=== PATIENT | female | born 1975 | race Caucasian/White ===

== ENCOUNTER → 2017-06-29 | Outpatient (CLI) | payer BC ==
[~2017-06-29] MED LIST: BIAXIN500 MG PO; CIPRO500 MG PO; CIPROFLOXACIN500 MG PO; CLARITIN10 MG PO; DIFLUCAN150 MG PO; DOXYCYCLINE100 M2 PO; LEVOTHYROXIN0.025 MG PO; MACROBID100 M1 PO; PRILOSEC40 MG PO
== END | disposition home or self-care (01) ==
LOC: US 15:14
DX: M79.605 Pain in left leg (principal); R60.0 Localized edema

== ENCOUNTER → 2017-07-27 | Outpatient (CLI) | payer BC | END | disposition home or self-care (01) | LOC: US 12:22 | DX: I65.23 Occlusion and stenosis of bilateral carotid arteries (principal); R42 Dizziness and giddiness ==

== ENCOUNTER → 2017-08-03 | Outpatient (CLI) | payer BC | END | disposition home or self-care (01) | LOC: US 14:31 | DX: R10.2 Pelvic and perineal pain (principal); R19.8 Other specified symptoms and signs involving the digestive system and abdomen ==

== ENCOUNTER → 2017-08-07 | Outpatient (CLI) | payer BC | END | disposition home or self-care (01) | LOC: CP 09:48 | DX: R42 Dizziness and giddiness (principal) ==

== ENCOUNTER → 2017-09-17 | Day surgery (SDC) | payer BC ==
[~2017-09-17] VITALS: Ht 162.5 cm; Wt 81.6 kg
[~2017-09-17] MED LIST changes: +ASPIRIN81 M1 PO; +CLONAZEPAM0.5 M1 PO; +CRESTOR5 MG PO; -LEVOTHYROXIN0.025 MG PO; +LEVOXYL88 MCG PO; +METFORMIN ER500 MG PO; +OXYBUTYNIN5 MG PO; +TOPIRAMATE25 M2 PO; +ULTRAM50 MG PO
[2017-09-17 08:43] VITALS: BP 118/79
[2017-09-17 12:30] VITALS: BP 123/64
[2017-09-17 12:45] VITALS: BP 133/64
[2017-09-17 13:00] VITALS: BP 140/67
== END ==
LOC: SDC 09-13 08:45
DX: L72.0 Epidermal cyst (principal); E11.9 Type 2 diabetes mellitus without complications; K21.9 Gastro-esophageal reflux disease without esophagitis; Z79.899 Other long term (current) drug therapy; Z98.890 Other specified postprocedural states; E66.9 Obesity, unspecified; E07.89 Other specified disorders of thyroid

== ENCOUNTER → 2018-01-29 | Outpatient (CLI) | payer BC ==
[2018-01-29 10:20] LABS: CHOLESTEROL 139 mg/dL (<200); CREATININE 0.72 mg/dL (0.55-1.02); POTASSIUM 3.7 mmol/L (3.5-5.1); SGOT/AST 11 IU/L (3-35); SGPT/ALT 14 U/L (12-78); TRIGLYCERIDES 71 mg/dl (<150); VLDL CHOLESTEROL 14 mg/dL (6-40)
[2018-01-29 10:30] LABS: HDL CHOLESTEROL 59 mg/dl (40-60); LDL CHOLESTEROL 66 mg/dL (9-159)
[2018-01-30 11:04] LABS: CREATININE,URINE 186.1 mg/dL (Not Estab.); MICRO ALBUMIN/CRE RATIO 5.7 (0.0-30.0)
== END | disposition home or self-care (01) ==
LOC: LAB 08:59
PROVIDERS: Internal Medicine Endocrinology, Diabetes & Metabolism
DX: E10.9 Type 1 diabetes mellitus without complications (principal)

== ENCOUNTER → 2018-02-13 | Outpatient (CLI) | payer BC ==
[2018-02-13 11:26] LABS: BASO # 0.1 10*3/uL (0.0-0.1); BASO % 0.9 % (0.0-1.0); EOS # 0.4 10*3/uL (0.0-0.4); HEMATOCRIT 39.5 % (37.0-47.0); HEMOGLOBIN 12.8 g/dl (12.0-16.0); LYMPH # 2.3 10*3/uL (1.3-4.4); LYMPH % 25.7 % (27.0-41.0); MEAN CORPUSCULAR HGB 26.9 pg (27.0-31.0); MEAN CORPUSCULAR HGB CONC 32.4 g/dl (33.0-37.0); MEAN PLATELET VOLUME 11.6 fl (9.6-12.3); MONO # 0.6 10*3/uL (0.1-1.0); MONO % 6.2 % (3.0-9.0); NEUT # 5.5 10*3/uL (2.3-7.9); NEUT % 62.9 % (47.0-73.0); PLATELET COUNT AUTOMATED 280 10*3/uL (130-400); RED BLOOD COUNT 4.76 10*6/uL (4.10-5.10); RED CELL DISTRI WIDTH 12.6 % (0-14.5); WHITE BLOOD COUNT 8.8 10*3/uL (4.8-10.8)
== END | disposition home or self-care (01) ==
LOC: LAB 10:57
PROVIDERS: Nurse Practitioner Family
DX: N93.9 Abnormal uterine and vaginal bleeding, unspecified (principal); R53.83 Other fatigue

== ENCOUNTER → 2018-02-27 | Outpatient (CLI) | payer BC | END | disposition home or self-care (01) | LOC: US 12:30 | DX: N93.9 Abnormal uterine and vaginal bleeding, unspecified (principal) ==

== ENCOUNTER → 2019-03-05 | Outpatient (CLI) | payer BC | END | disposition home or self-care (01) | LOC: MAMMO 10:40 | DX: Z12.31 Encounter for screening mammogram for malignant neoplasm of breast (principal) ==

== ENCOUNTER → 2019-06-05 | Outpatient (CLI) | payer BC ==
[2019-06-05 09:00] LABS: CHOLESTEROL 167 mg/dL (<200); CREATININE 0.69 mg/dL (0.55-1.02); POTASSIUM 4.1 mmol/L (3.5-5.1); SGOT/AST 9 IU/L (3-35); SGPT/ALT 19 U/L (12-78); TRIGLYCERIDES 45 mg/dl (<150); VLDL CHOLESTEROL 9 mg/dL (6-40)
[2019-06-05 09:10] LABS: FREE T4 1.19 ng/dl (0.76-1.46); HDL CHOLESTEROL 67 mg/dl (40-60); LDL CHOLESTEROL 91 mg/dL (9-159)
[2019-06-06 11:09] LABS: MICRO ALBUMIN/CRE RATIO 4.6 (0.0-30.0)
== END | disposition home or self-care (01) ==
LOC: LAB 08:12
PROVIDERS: Internal Medicine Endocrinology, Diabetes & Metabolism
DX: E10.9 Type 1 diabetes mellitus without complications (principal)

== ENCOUNTER → 2019-09-16 | Outpatient (CLI) | payer BC | END | disposition home or self-care (01) | LOC: RESCLI 01:37 | DX: E10.9 Type 1 diabetes mellitus without complications (principal); J32.9 Chronic sinusitis, unspecified; E03.9 Hypothyroidism, unspecified; F41.9 Anxiety disorder, unspecified; R03.0 Elevated blood-pressure reading, without diagnosis of hypertension; Z79.4 Long term (current) use of insulin; Z79.899 Other long term (current) drug therapy; Z90.89 Acquired absence of other organs ==

== ENCOUNTER → 2019-11-26 | Outpatient (CLI) | payer BC | END | disposition home or self-care (01) | LOC: LAB 13:25 | DX: N28.9 Disorder of kidney and ureter, unspecified (principal); R31.9 Hematuria, unspecified; Z87.442 Personal history of urinary calculi ==

== ENCOUNTER → 2019-11-28 | Outpatient (CLI) | payer BC | END | disposition home or self-care (01) | LOC: CT 17:00 | DX: N23 Unspecified renal colic (principal); R31.9 Hematuria, unspecified; Z87.442 Personal history of urinary calculi ==

== ENCOUNTER → 2020-04-21 | Outpatient (CLI) | payer BC | END | disposition home or self-care (01) | LOC: RESCLI 03:22 | DX: Z30.011 Encounter for initial prescription of contraceptive pills (principal); Z51.81 Encounter for therapeutic drug level monitoring; E03.9 Hypothyroidism, unspecified; I10 Essential (primary) hypertension; E10.9 Type 1 diabetes mellitus without complications; E78.5 Hyperlipidemia, unspecified ==

== ENCOUNTER → 2020-06-03 | Outpatient (CLI) | payer BC | END | disposition home or self-care (01) | LOC: RAD 13:51 | PROVIDERS: ATTEND Nurse Practitioner Family | DX: M77.10 Lateral epicondylitis, unspecified elbow (principal); M77.02 Medial epicondylitis, left elbow ==

== ENCOUNTER → 2020-08-04 | Outpatient (CLI) | payer BC | END | disposition home or self-care (01) | LOC: RESCLI 05:13 | PROVIDERS: ATTEND Internal Medicine Nephrology | DX: Z23 Encounter for immunization (principal); Z30.011 Encounter for initial prescription of contraceptive pills; E03.9 Hypothyroidism, unspecified; E78.2 Mixed hyperlipidemia; I10 Essential (primary) hypertension; E10.9 Type 1 diabetes mellitus without complications ==

== ENCOUNTER → 2020-09-03 | Outpatient (CLI) | payer BC | END | disposition home or self-care (01) | LOC: RAD 12:58 | PROVIDERS: ATTEND Orthopaedic Surgery | DX: M79.642 Pain in left hand (principal) ==

== ENCOUNTER → 2020-11-16 | Outpatient (CLI) | payer BC ==
[2020-11-16 16:00] LABS: BILIRUBIN Negative (Negative); BLOOD 3+ (Negative); CLARITY Cloudy (Clear); COLOR Yellow (Yellow); GLUCOSE Negative (Negative); KETONE Trace (Negative); LEUKO ESTERASE 2+ (Negative); NITRITE Negative (Negative); PH 5.5 (4.5-8.0); SPECIFIC GRAVITY 1.025 (1.001-1.030)
[2020-11-16 16:00] LABS: BASO # 0.1 10*3/uL (0.0-0.1); BASO % 0.8 % (0.0-1.0); EOS # 0.2 10*3/uL (0.0-0.4); EOS % 1.8 % (1.0-4.0); HEMATOCRIT 43.4 % (37.0-47.0); LYMPH # 2.4 10*3/uL (1.3-4.4); LYMPH % 23.3 % (27.0-41.0); MEAN CELL VOLUME 87.7 fl (81.0-99.0); MEAN CORPUSCULAR HGB 27.7 pg (27.0-31.0); MEAN CORPUSCULAR HGB CONC 31.6 g/dl (33.0-37.0); MONO # 0.8 10*3/uL (0.1-1.0); MONO % 7.9 % (3.0-9.0); NEUT # 6.8 10*3/uL (2.3-7.9); NEUT % 65.7 % (47.0-73.0); PLATELET COUNT AUTOMATED 278 10*3/uL (130-400); RED BLOOD COUNT 4.95 10*6/uL (4.10-5.10); RED CELL DISTRI WIDTH 12.8 % (0-14.5); WHITE BLOOD COUNT 10.4 10*3/uL (4.8-10.8)
[2020-11-16 16:07] LABS: RBC TNTC rbc/hpf (0-2); WBC TNTC wbc/hpf (0-5)
[2020-11-16 16:08] LABS: BACTERIA 1+; CALCIUM OXALATE CRYSTALS 1+
[2020-11-16 16:12] LABS: BUN 9 mg/dl (7-24); CHLORIDE 109 mmol/L (98-107); CREATININE 0.67 mg/dL (0.55-1.02); POTASSIUM 3.7 mmol/L (3.5-5.1); SODIUM 141 mmol/L (136-145)
== END | disposition home or self-care (01) ==
LOC: RESCLI 01:19 → LAB 01:19 → RESCLI 18:47
PROVIDERS: Internal Medicine; ATTEND Internal Medicine
DX: N39.0 Urinary tract infection, site not specified (principal); E03.9 Hypothyroidism, unspecified; E10.9 Type 1 diabetes mellitus without complications; I10 Essential (primary) hypertension; E78.2 Mixed hyperlipidemia; Z30.011 Encounter for initial prescription of contraceptive pills; Z79.899 Other long term (current) drug therapy; Z98.890 Other specified postprocedural states; Z79.82 Long term (current) use of aspirin

== ENCOUNTER → 2020-12-07 | Outpatient (CLI) | payer BC | END | disposition home or self-care (01) | LOC: RAD 19:32 | PROVIDERS: ATTEND Nurse Practitioner Family | DX: M25.571 Pain in right ankle and joints of right foot (principal); R60.0 Localized edema; Z82.69 Family history of other diseases of the musculoskeletal system and connective tissue ==

== ENCOUNTER → 2021-10-03 | Outpatient (CLI) | payer BC | END | disposition home or self-care (01) | LOC: RAD 09:34 | PROVIDERS: ATTEND Nurse Practitioner Family | DX: R05.9 Cough, unspecified (principal); R06.02 Shortness of breath ==

== ENCOUNTER → 2022-06-08 | Outpatient (CLI) | payer BC ==
[2022-06-08 10:33] LABS: BASO # 0.1 10*3/uL (0.0-0.1); EOS # 0.2 10*3/uL (0.0-0.4); EOS % 2.6 % (1.0-4.0); HEMATOCRIT 41.6 % (37.0-47.0); LYMPH # 2.1 10*3/uL (1.3-4.4); LYMPH % 22.4 % (27.0-41.0); MEAN CELL VOLUME 87.4 fl (81.0-99.0); MEAN CORPUSCULAR HGB 28.4 pg (27.0-31.0); MEAN CORPUSCULAR HGB CONC 32.5 g/dl (33.0-37.0); MEAN PLATELET VOLUME 11.4 fl (9.6-12.3); MONO # 0.7 10*3/uL (0.1-1.0); MONO % 7.3 % (3.0-9.0); NEUT # 6.1 10*3/uL (2.3-7.9); NEUT % 66.3 % (47.0-73.0); PLATELET COUNT AUTOMATED 262 10*3/uL (130-400); RED BLOOD COUNT 4.76 10*6/uL (4.10-5.10); RED CELL DISTRI WIDTH 12.5 % (0-14.5); WHITE BLOOD COUNT 9.2 10*3/uL (4.8-10.8)
== END | disposition home or self-care (01) ==
LOC: LAB 10:19
PROVIDERS: ATTEND Nurse Practitioner Women's Health
DX: N93.9 Abnormal uterine and vaginal bleeding, unspecified (principal); R53.83 Other fatigue

== ENCOUNTER → 2022-07-27 | Outpatient (CLI) | payer BC | END | disposition home or self-care (01) | LOC: RESCLI 13:52 | PROVIDERS: ATTEND Internal Medicine | DX: E10.9 Type 1 diabetes mellitus without complications (principal); I10 Essential (primary) hypertension; E03.9 Hypothyroidism, unspecified; E78.2 Mixed hyperlipidemia; E55.9 Vitamin D deficiency, unspecified; N93.9 Abnormal uterine and vaginal bleeding, unspecified; Z78.9 Other specified health status; Z72.89 Other problems related to lifestyle; Z82.49 Family history of ischemic heart disease and other diseases of the circulatory system; Z98.890 Other specified postprocedural states; Z79.82 Long term (current) use of aspirin; Z79.899 Other long term (current) drug therapy ==

== ENCOUNTER → 2023-04-26 | Outpatient (CLI) | payer BC ==
[2023-04-26 13:19] LABS: BASO # 0.1 10*3/uL (0.0-0.1); EOS # 0.2 10*3/uL (0.0-0.4); HEMATOCRIT 38.2 % (37.0-47.0); LYMPH # 1.5 10*3/uL (1.3-4.4); LYMPH % 20.7 % (27.0-41.0); MEAN CELL VOLUME 86.8 fl (81.0-99.0); MEAN CORPUSCULAR HGB 28.9 pg (27.0-31.0); MEAN CORPUSCULAR HGB CONC 33.2 g/dl (33.0-37.0); MEAN PLATELET VOLUME 11.4 fl (9.6-12.3); MONO # 0.6 10*3/uL (0.1-1.0); MONO % 7.9 % (3.0-9.0); NEUT # 4.9 10*3/uL (2.3-7.9); NEUT % 66.8 % (47.0-73.0); PLATELET COUNT AUTOMATED 250 10*3/uL (130-400); RED CELL DISTRI WIDTH 12.6 % (0-14.5); WHITE BLOOD COUNT 7.3 10*3/uL (4.8-10.8)
[2023-04-26 13:57] LABS: ALKALINE PHOSPHATASE 40 U/L (46-116); BUN 8 mg/dl (9-23); CHLORIDE 108 mmol/L (98-107); CHOLESTEROL 140 mg/dL (<200); LDL CHOLESTEROL 58 mg/dL (9-159); POTASSIUM 3.7 mmol/L (3.4-5.1); SGPT/ALT 10 U/L (10-49); TRIGLYCERIDES 43 mg/dl (<150)
== END | disposition home or self-care (01) ==
LOC: LAB 12:57
PROVIDERS: ATTEND Nurse Practitioner Family
DX: E10.9 Type 1 diabetes mellitus without complications (principal); E03.9 Hypothyroidism, unspecified; I10 Essential (primary) hypertension

== ENCOUNTER → 2023-08-29 | Outpatient (CLI) | payer BC | END | disposition home or self-care (01) | LOC: RESCLI 14:21 | PROVIDERS: ATTEND Internal Medicine | DX: E03.9 Hypothyroidism, unspecified (principal); E10.9 Type 1 diabetes mellitus without complications; I10 Essential (primary) hypertension; E78.2 Mixed hyperlipidemia; E55.9 Vitamin D deficiency, unspecified; F41.9 Anxiety disorder, unspecified; Z79.82 Long term (current) use of aspirin; Z79.899 Other long term (current) drug therapy; Z86.16 Personal history of COVID-19; Z82.49 Family history of ischemic heart disease and other diseases of the circulatory system ==

== ENCOUNTER → 2023-09-18 | Outpatient (CLI) | payer BC ==
[2023-09-18 10:17] LABS: BASO # 0.1 10*3/uL (0.0-0.1); BASO % 1.2 % (0.0-1.0); EOS # 0.1 10*3/uL (0.0-0.4); EOS % 2.4 % (1.0-4.0); HEMATOCRIT 45.9 % (37.0-47.0); LYMPH # 1.2 10*3/uL (1.3-4.4); MEAN CELL VOLUME 88.8 fl (81.0-99.0); MEAN CORPUSCULAR HGB 26.9 pg (27.0-31.0); MEAN CORPUSCULAR HGB CONC 30.3 g/dl (33.0-37.0); MEAN PLATELET VOLUME 11.3 fl (9.6-12.3); MONO # 0.9 10*3/uL (0.1-1.0); MONO % 14.5 % (3.0-9.0); NEUT # 3.6 10*3/uL (2.3-7.9); NEUT % 61.6 % (47.0-73.0); PLATELET COUNT AUTOMATED 208 10*3/uL (130-400); RED BLOOD COUNT 5.17 10*6/uL (4.10-5.10); RED CELL DISTRI WIDTH 12.5 % (0-14.5); WHITE BLOOD COUNT 5.9 10*3/uL (4.8-10.8)
[2023-09-18 10:49] LABS: ALKALINE PHOSPHATASE 52 U/L (46-116); BUN 7 mg/dl (9-23); CHLORIDE 105 mmol/L (98-107); POTASSIUM 3.9 mmol/L (3.4-5.1); SGPT/ALT 15 U/L (5-49); TOTAL PROTEIN 6.7 gm/dL (6.0-8.0)
== END | disposition home or self-care (01) ==
LOC: LAB 10:04
PROVIDERS: ATTEND Nurse Practitioner Family
DX: M79.631 Pain in right forearm (principal); M25.531 Pain in right wrist; E10.9 Type 1 diabetes mellitus without complications; U07.1 COVID-19; I10 Essential (primary) hypertension; M79.641 Pain in right hand; M79.601 Pain in right arm; W19.XXXA Unspecified fall, initial encounter

== ENCOUNTER → 2023-10-25 | Outpatient (CLI) | payer BC ==
[2023-10-25 08:07] LABS: BASO # 0.1 10*3/uL (0.0-0.1); EOS # 0.2 10*3/uL (0.0-0.4); EOS % 2.9 % (1.0-4.0); HEMATOCRIT 45.3 % (37.0-47.0); LYMPH # 2.1 10*3/uL (1.3-4.4); LYMPH % 25.6 % (27.0-41.0); MEAN CORPUSCULAR HGB 27.4 pg (27.0-31.0); MEAN CORPUSCULAR HGB CONC 31.1 g/dl (33.0-37.0); MEAN PLATELET VOLUME 11.1 fl (9.6-12.3); MONO # 0.5 10*3/uL (0.1-1.0); MONO % 6.2 % (3.0-9.0); NEUT # 5.1 10*3/uL (2.3-7.9); NEUT % 63.9 % (47.0-73.0); PLATELET COUNT AUTOMATED 283 10*3/uL (130-400); RED BLOOD COUNT 5.15 10*6/uL (4.10-5.10)
[2023-10-25 08:22] LABS: URINE CREATININE RANDOM 88.58 mg/dL
[2023-10-25 08:26] LABS: ALKALINE PHOSPHATASE 52 U/L (46-116); BUN 11 mg/dl (9-23); CHLORIDE 106 mmol/L (98-107); CHOLESTEROL 176 mg/dL (<200); LDL CHOLESTEROL 86 mg/dL (9-159); POTASSIUM 4.3 mmol/L (3.4-5.1); SGPT/ALT 10 U/L (5-49); TRIGLYCERIDES 47 mg/dl (<150)
== END | disposition home or self-care (01) ==
LOC: LAB 07:41
PROVIDERS: ATTEND Nurse Practitioner Family
DX: I10 Essential (primary) hypertension (principal); E10.9 Type 1 diabetes mellitus without complications; E03.9 Hypothyroidism, unspecified; E78.2 Mixed hyperlipidemia

== ENCOUNTER → 2024-02-04 | Day surgery (SDC) | payer BC ==
[2024-02-01 11:45] LABS: BASO # 0.1 10*3/uL (0.0-0.1); EOS # 0.2 10*3/uL (0.0-0.4); EOS % 2.8 % (1.0-4.0); HEMATOCRIT 39.2 % (37.0-47.0); LYMPH # 1.8 10*3/uL (1.3-4.4); LYMPH % 20.7 % (27.0-41.0); MEAN CELL VOLUME 87.7 fl (81.0-99.0); MEAN CORPUSCULAR HGB 27.7 pg (27.0-31.0); MEAN CORPUSCULAR HGB CONC 31.6 g/dl (33.0-37.0); MONO # 0.7 10*3/uL (0.1-1.0); MONO % 7.7 % (3.0-9.0); NEUT # 5.8 10*3/uL (2.3-7.9); NEUT % 67.5 % (47.0-73.0); PLATELET COUNT AUTOMATED 281 10*3/uL (130-400); RED BLOOD COUNT 4.47 10*6/uL (4.10-5.10); RED CELL DISTRI WIDTH 12.4 % (0-14.5); WHITE BLOOD COUNT 8.6 10*3/uL (4.8-10.8)
[2024-02-01 11:51] LABS: BILIRUBIN Negative (Negative); BLOOD Negative (Negative); CLARITY Clear (Clear); COLOR Yellow (Yellow); GLUCOSE Negative (Negative); KETONE Negative (Negative); LEUKO ESTERASE Negative (Negative); NITRITE Negative (Negative); PH 5.5 (4.5-8.0); UROBILINOGEN 0.2 E.U./dl (0.0-1.0)
[2024-02-01 12:43] LABS: BACTERIA 1+
[~2024-02-04] VITALS: Ht 162.5 cm; Wt 83.9 kg
[~2024-02-04] MED LIST changes: +Bacitracin Zinc/Neomycin/Pol 15 GM TUBE T ONE; +Bupivacaine Hydrochloride/Ep2 30 ML VIAL ONE; +Ketamine Hydrochloride 50 MG/5 ML SYRINGE IV ONE; +Ketamine Hydrochloride 500 MG/10 ML VIAL IV ONE; +Lidocaine Hydrochloride 2% 10 ML AMP IM ONE; +Midazolam Hydrochloride 2 MG/2 ML VIAL IV ONE; +Midazolam Hydrochloride 2 MG/2 ML VIAL IV STA; +PROPOFOL 200 MG/20 ML VIAL IV ONE; +SODIUM CHLORIDE 0.9% 1,000 ML IV ONE; +SODIUM CHLORIDE 0.9% 1,000 ML IV SCH; +ceFAZolin sodium 2GM/20ML IV ONE; +ceFAZolin sodium/sodium chlor 20 ML IV ONE
[2024-02-04 12:21] VITALS: BP 134/77
[2024-02-04 13:59] VITALS: BP 132/60
[2024-02-04 14:14] VITALS: BP 138/53
[2024-02-04 14:29] VITALS: BP 133/73
[2024-02-04 15:31] VITALS: BP 132/60
== END | disposition home or self-care (01) ==
LOC: SDC 01-31 11:00
PROVIDERS: ATTEND Surgery
DX: L72.0 Epidermal cyst (principal); I10 Essential (primary) hypertension; K21.9 Gastro-esophageal reflux disease without esophagitis; E03.9 Hypothyroidism, unspecified; E10.9 Type 1 diabetes mellitus without complications; E78.00 Pure hypercholesterolemia, unspecified; F10.90 Alcohol use, unspecified, uncomplicated; Z86.16 Personal history of COVID-19; Z90.89 Acquired absence of other organs; Z90.710 Acquired absence of both cervix and uterus; Z98.890 Other specified postprocedural states; Z79.4 Long term (current) use of insulin; Z79.890 Hormone replacement therapy; Z79.899 Other long term (current) drug therapy; Z82.49 Family history of ischemic heart disease and other diseases of the circulatory system

== ENCOUNTER → 2024-06-25 | Outpatient (CLI) | payer BC ==
[~2024-06-25] MED LIST changes: -Bacitracin Zinc/Neomycin/Pol 15 GM TUBE T ONE; -Bupivacaine Hydrochloride/Ep2 30 ML VIAL ONE; -Ketamine Hydrochloride 50 MG/5 ML SYRINGE IV ONE; -Ketamine Hydrochloride 500 MG/10 ML VIAL IV ONE; -Lidocaine Hydrochloride 2% 10 ML AMP IM ONE; -Midazolam Hydrochloride 2 MG/2 ML VIAL IV ONE; -Midazolam Hydrochloride 2 MG/2 ML VIAL IV STA; -PROPOFOL 200 MG/20 ML VIAL IV ONE; -SODIUM CHLORIDE 0.9% 1,000 ML IV ONE; -SODIUM CHLORIDE 0.9% 1,000 ML IV SCH; -ceFAZolin sodium 2GM/20ML IV ONE; -ceFAZolin sodium/sodium chlor 20 ML IV ONE
[2024-06-25 17:38] LABS: BILIRUBIN Negative (Negative); BLOOD Negative (Negative); CLARITY Clear (Clear); COLOR Yellow (Yellow); GLUCOSE 2+ (Negative); KETONE Trace (Negative); LEUKO ESTERASE Negative (Negative); NITRITE Negative (Negative); PH 5.5 (4.5-8.0); SPECIFIC GRAVITY 1.025 (1.001-1.030); UROBILINOGEN 0.2 E.U./dl (0.0-1.0)
[2024-06-25 17:50] LABS: BACTERIA 1+; RBC 0-2 rbc/hpf (0-2); WBC 0-2 wbc/hpf (0-5); YEAST TRACE
== END | disposition home or self-care (01) ==
LOC: LAB 12:27
PROVIDERS: ATTEND Nurse Practitioner Family
DX: R30.0 Dysuria (principal)

== ENCOUNTER → 2024-08-14 | Outpatient (CLI) | payer BC | END | disposition home or self-care (01) | LOC: ZRHCWE 17:15 | PROVIDERS: ATTEND Nurse Practitioner Family | DX: R30.0 Dysuria (principal) ==

== ENCOUNTER → 2024-08-19 | Outpatient (CLI) | payer BC ==
[2024-08-19 08:57] LABS: ALKALINE PHOSPHATASE 45 U/L (46-116); BUN 12 mg/dl (9-23); CHLORIDE 107 mmol/L (98-107); CHOLESTEROL 153 mg/dL (<200); FREE T4 1.29 ng/dl (0.89-1.76); LDL CHOLESTEROL 74 mg/dL (9-159); POTASSIUM 4.5 mmol/L (3.4-5.1); SGPT/ALT 13 U/L (5-49); TOTAL PROTEIN 6.5 gm/dL (6.0-8.0); TRIGLYCERIDES 41 mg/dl (<150)
== END | disposition home or self-care (01) ==
LOC: LAB 08:08
PROVIDERS: ATTEND Clinical Nurse Specialist
DX: E10.9 Type 1 diabetes mellitus without complications (principal); E03.9 Hypothyroidism, unspecified; E55.9 Vitamin D deficiency, unspecified

== ENCOUNTER → 2025-08-06 | Outpatient (CLI) | payer BC ==
[2025-08-06 08:13] LABS: BASO # 0.1 10*3/uL (0.0-0.1); BASO % 0.8 % (0.0-1.0); EOS # 0.2 10*3/uL (0.0-0.4); EOS % 1.4 % (1.0-4.0); MEAN CELL VOLUME 87.6 fl (81.0-99.0); MEAN CORPUSCULAR HGB 28.5 pg (27.0-31.0); MEAN PLATELET VOLUME 11.4 fl (9.6-12.3); MONO # 0.7 10*3/uL (0.1-1.0); MONO % 6.6 % (3.0-9.0); NEUT # 7.7 10*3/uL (2.3-7.9); NEUT % 74.1 % (47.0-73.0); NUCLEATED RED BLOOD CELL 0.0 % (0.0-0.0); NUCLEATED RED BLOOD CELL 0.0 10*3/uL (0.0-0.0); PLATELET COUNT AUTOMATED 280 10*3/uL (130-400); RED CELL DISTRI WIDTH 12.5 % (0-14.5)
[2025-08-06 08:58] LABS: BUN 15 mg/dl (9-23); FREE T4 1.21 ng/dl (0.89-1.76); LDL CHOLESTEROL 94 mg/dL (9-159)
== END | disposition home or self-care (01) ==
LOC: LAB 07:53
PROVIDERS: ATTEND Nurse Practitioner Family
DX: E10.9 Type 1 diabetes mellitus without complications (principal); E03.9 Hypothyroidism, unspecified

== ENCOUNTER → 2025-09-02 | Outpatient (CLI) | payer BC | END | disposition home or self-care (01) | LOC: US 08:13 | PROVIDERS: ATTEND Nurse Practitioner Family | DX: I34.0 Nonrheumatic mitral (valve) insufficiency (principal); I10 Essential (primary) hypertension; I16.0 Hypertensive urgency; R42 Dizziness and giddiness; E10.42 Type 1 diabetes mellitus with diabetic polyneuropathy ==

== ENCOUNTER → 2025-09-11 | Outpatient (CLI) | payer BC ==
[~2025-09-11] MED LIST changes: +Regadenoson 0.4 MG/5 ML SYR IV ONE; +Technetium Tc 99M Tetrofosmi 0.23 MG KIT IJ SCH
== END | disposition home or self-care (01) ==
LOC: CARD 01:34
PROVIDERS: ATTEND Nurse Practitioner Family
DX: R42 Dizziness and giddiness (principal); I10 Essential (primary) hypertension; E10.42 Type 1 diabetes mellitus with diabetic polyneuropathy

== ENCOUNTER → 2025-09-18 | Outpatient (CLI) | payer BC ==
[~2025-09-18] MED LIST changes: -Regadenoson 0.4 MG/5 ML SYR IV ONE; -Technetium Tc 99M Tetrofosmi 0.23 MG KIT IJ SCH
== END | disposition home or self-care (01) ==
LOC: US 02:25
PROVIDERS: ATTEND Nurse Practitioner Family
DX: K76.9 Liver disease, unspecified (principal); D18.03 Hemangioma of intra-abdominal structures